=== PATIENT | female | born 1955 | race Caucasian/White ===

== ENCOUNTER 2016-10-07 12:00 | Emergency (ER) | payer OTHER ==
[2016-10-07] MEDS ORDERED: KETOROLAC 30 MG/ML VIAL ONE (13:47)
[2016-10-07] MEDS ORDERED: ACETAMINOPHEN 325 MG TAB ONE (15:43)
== END 2016-10-07 16:56 | disposition home or self-care (01) ==
LOC: ER 12:00
CPT/HCPCS: 36415 ×2; 70450 ×2; 80053 ×2; 81001 ×2; 83690 ×2; 84439 ×2; 84443 ×2; 85025 ×2; 87088 ×2; 96374 ×2; 99284; J1885